=== PATIENT | female | born 1975 | race Caucasian/White ===

== ENCOUNTER 2021-05-30 04:16 | Inpatient (IN) | payer SELFPAY ==
[2021-05-30 05:01] LABS: #Eosinphils 0.1 thou/uL (0.0-0.7); #Lymphocytes 1.9 thou/uL (1.20-3.40); #Monocytes 0.4 thou/uL (0.11-0.59); #Neutrophils 6.3 thou/uL (1.40-6.50); %Basophils 0.4 % (0.0-1.0); %Eosinophils 1.7 % (0.0-10.0); %Lymphocytes 21.6 % (21.0-51.0); %Monocytes 4.2 % (0.0-10.0); %Neutrophils 72.1 % (42.0-75.0); Hemoglobin 12.4 g/dL (12.0-16.0); Mean Corpuscular HGB CONC 30.6 g/dL (32.0-36.0); Mean Corpuscular Hemoglobin 30.4 pg (27.0-31.0); Mean Corpuscular Volume 99.4 fL (78.0-98.0); Mean Platelet Volume 8.1 fL (7.4-10.4); Platelet Count 260 thou/uL (130-400); Red Blood Cell (RBC) Count 4.08 mill/uL (4.20-5.40); White Blood Cell (WBC) Count 8.7 thou/uL (4.8-10.8)
[2021-05-30 05:19] LABS: ALT (SGPT) 28 U/L (8-55); AST (SGOT) 26 U/L (5-34); Albumin 3.4 g/dL (3.5-5.0); Alkaline Phosphatase 99 U/L (40-110); Anion Gap 10 mmol/L (10-20); BUN (Urea Nitrogen) 14 mg/dL (7.0-18.7); Bilirubin, Total 0.3 mg/dL (0.2-1.2); Calc. Creatinine Clearance 0 mL/min (70-130); Calcium 8.9 mg/dL (7.8-10.44); Carbon Dioxide 36 mmol/L (22-29); Chloride 102 mmol/L (98-107); Globulin 3.1 g/dL (2.4-3.5); Glucose 263 mg/dL (70-105); Potassium 4.6 mmol/L (3.5-5.1); Protein, Total 6.5 g/dL (6.0-8.3); Sodium 143 mmol/L (136-145)
[2021-05-30 06:50] LABS: SARS-CoV-2 NAA Rapid Test Not Detected (NotDetected)
[2021-05-30] MEDS ORDERED: Acetaminophen 325 MG TAB PO PRN (09:40)
[2021-05-30] MEDS ORDERED: Dextrose 50% Abboject 50 ML SYRINGE SLOW IVP PRN (09:40)
[2021-05-30] MEDS ORDERED: Dextrose 5% in Water 1,000 ML IV PRN (09:40)
[2021-05-30] MEDS ORDERED: Furosemide 20 MG/2 ML VIAL SLOW IVP SCH (10:00)
[2021-05-30] MEDS ORDERED: Enoxaparin Sodium 40 MG/0.4 ML SYRINGE SC SCH (10:45)
[2021-05-30 11:03] VITALS: BMI 61.2
[2021-05-30] MEDS ORDERED: Iopamidol-370 76% 500 ML 1 ML ONE (12:27)
[2021-05-30] MEDS: HumaLOG 300 UNITS/3 ML VIAL SC PRN (12:40)
[2021-05-30] MEDS ORDERED: Albuterol Sulfate 1.25 MG/3 ML NEB NEB PRN (14:06)
[2021-05-30 16:40] LABS: Bacteria/HPF None Seen HPF (None Seen); Bilirubin Negative (Negative); Blood, Urine Negative (Negative); Clarity Clear (Clear); Glucose, Urine (Dipstick) Normal (Negative); Ketone, Urine Negative (Negative); Leukocyte Negative Leu/uL (Negative); Nitrite Negative (Negative); Protein, Urine (Dipstick) Negative (Neg-Trace); RBC/HPF 0-3 HPF (0-3); Specific Gravity, Urine 1.023 (1.002-1.036); Squamous Epithelial 0-3 HPF (0-3); Urobilinogen Normal mg/dL (Less than 2); WBC/HPF 0-3 HPF (0-3); pH, Urine 6.5 (5.0-9.0)
[2021-05-30] MEDS: Amlodipine 10 MG TAB PO SCH (20:40)
[2021-05-30] MEDS: Atorvastatin Calcium 40 MG TAB PO SCH (20:41)
[2021-05-30] MEDS: Lisinopril 10 MG TAB PO SCH (20:41)
[2021-05-30] MEDS: Lantus 1000 UNITS/10 ML VIAL SC SCH (20:42)
[2021-05-30] MEDS: Mometasone 200 MCG/Formoterol 5 MCG 120 PUFF INHALER INH SCH (22:15)
[2021-05-31] MEDS: Levothyroxine Sodium 88 MCG TAB PO SCH (05:38)
[2021-05-31 05:55] LABS: #Eosinphils 0.1 thou/uL (0.0-0.7); #Lymphocytes 1.7 thou/uL (1.20-3.40); #Monocytes 0.4 thou/uL (0.11-0.59); #Neutrophils 7.7 thou/uL (1.40-6.50); %Basophils 0.1 % (0.0-1.0); %Eosinophils 1.5 % (0.0-10.0); %Lymphocytes 16.9 % (21.0-51.0); %Monocytes 4.3 % (0.0-10.0); %Neutrophils 77.2 % (42.0-75.0); Hemoglobin 13.3 g/dL (12.0-16.0); Mean Corpuscular HGB CONC 31.4 g/dL (32.0-36.0); Mean Corpuscular Hemoglobin 31.2 pg (27.0-31.0); Mean Corpuscular Volume 99.4 fL (78.0-98.0); Mean Platelet Volume 7.8 fL (7.4-10.4); Platelet Count 273 thou/uL (130-400); RBC Distribution Width 13.8 % (11.5-14.5); Red Blood Cell (RBC) Count 4.24 mill/uL (4.20-5.40)
[2021-05-31 06:19] LABS: Anion Gap 11 mmol/L (10-20); BUN (Urea Nitrogen) 13 mg/dL (7.0-18.7); Calc. Creatinine Clearance 236 mL/min (70-130); Calcium 8.8 mg/dL (7.8-10.44); Carbon Dioxide 36 mmol/L (22-29); Chloride 100 mmol/L (98-107); Glucose 195 mg/dL (70-105); Potassium 4.7 mmol/L (3.5-5.1); Sodium 142 mmol/L (136-145)
[2021-05-31] MEDS: Enoxaparin Sodium 40 MG/0.4 ML SYRINGE SC SCH (08:55)
[2021-05-31] MEDS: Mometasone 200 MCG/Formoterol 5 MCG 120 PUFF INHALER INH SCH ×2 (10:27→18:31)
[2021-05-31] MEDS: HumaLOG 300 UNITS/3 ML VIAL SC PRN ×3 (11:45→20:10)
[2021-05-31] MEDS ORDERED: predniSONE 20 MG TAB PO SCH (14:45)
[2021-05-31] MEDS: Atorvastatin Calcium 40 MG TAB PO SCH (20:08)
[2021-05-31] MEDS: Amlodipine 10 MG TAB PO SCH (20:08)
[2021-05-31] MEDS: Lisinopril 10 MG TAB PO SCH (20:08)
[2021-05-31] MEDS: Lantus 1000 UNITS/10 ML VIAL SC SCH (20:09)
[2021-06-01] MEDS: Levothyroxine Sodium 88 MCG TAB PO SCH (05:22)
[2021-06-01 06:44] LABS: #Lymphocytes 1.6 thou/uL (1.20-3.40); #Monocytes 0.7 thou/uL (0.11-0.59); %Basophils 0.3 % (0.0-1.0); %Eosinophils 0.2 % (0.0-10.0); %Lymphocytes 15.6 % (21.0-51.0); %Monocytes 6.3 % (0.0-10.0); %Neutrophils 77.7 % (42.0-75.0); Mean Corpuscular Hemoglobin 30.7 pg (27.0-31.0); Mean Corpuscular Volume 99.1 fL (78.0-98.0); Mean Platelet Volume 7.7 fL (7.4-10.4); Platelet Count 271 thou/uL (130-400); RBC Distribution Width 13.7 % (11.5-14.5); Red Blood Cell (RBC) Count 4.22 mill/uL (4.20-5.40); White Blood Cell (WBC) Count 10.3 thou/uL (4.8-10.8)
[2021-06-01] MEDS: HumaLOG 300 UNITS/3 ML VIAL SC PRN ×4 (06:48→21:42)
[2021-06-01 07:04] LABS: BUN (Urea Nitrogen) 12 mg/dL (7.0-18.7); Calc. Creatinine Clearance 238 mL/min (70-130); Glucose 229 mg/dL (70-105)
[2021-06-01 07:13] LABS: Anion Gap 15 mmol/L (10-20); Carbon Dioxide 33 mmol/L (22-29); Chloride 101 mmol/L (98-107); Potassium 4.6 mmol/L (3.5-5.1); Sodium 144 mmol/L (136-145)
[2021-06-01] MEDS ORDERED: predniSONE 20 MG TAB PO SCH (08:00)
[2021-06-01] MEDS: Mometasone 200 MCG/Formoterol 5 MCG 120 PUFF INHALER INH SCH ×2 (10:34→19:49)
[2021-06-01] MEDS: Enoxaparin Sodium 40 MG/0.4 ML SYRINGE SC SCH (11:42)
[2021-06-01] MEDS: Atorvastatin Calcium 40 MG TAB PO SCH (21:37)
[2021-06-01] MEDS: Amlodipine 10 MG TAB PO SCH (21:37)
[2021-06-01] MEDS: Lisinopril 10 MG TAB PO SCH (21:38)
[2021-06-01] MEDS: Montelukast Sodium 10 mg Tablet PO SCH (21:38)
[2021-06-01] MEDS: Lantus 1000 UNITS/10 ML VIAL SC SCH (21:38)
[2021-06-02 05:36] LABS: #Basophils 0.1 thou/uL (0.0-0.2); #Eosinphils 0.1 thou/uL (0.0-0.7); #Lymphocytes 2.1 thou/uL (1.20-3.40); #Monocytes 0.7 thou/uL (0.11-0.59); %Basophils 0.7 % (0.0-1.0); %Eosinophils 0.6 % (0.0-10.0); %Monocytes 6.3 % (0.0-10.0); %Neutrophils 73.5 % (42.0-75.0); Hemoglobin 12.7 g/dL (12.0-16.0); Mean Corpuscular HGB CONC 32.6 g/dL (32.0-36.0); Mean Corpuscular Hemoglobin 32.3 pg (27.0-31.0); Mean Corpuscular Volume 98.9 fL (78.0-98.0); Mean Platelet Volume 7.9 fL (7.4-10.4); Platelet Count 273 thou/uL (130-400); RBC Distribution Width 13.5 % (11.5-14.5); Red Blood Cell (RBC) Count 3.92 mill/uL (4.20-5.40); White Blood Cell (WBC) Count 10.8 thou/uL (4.8-10.8)
[2021-06-02 05:58] LABS: Anion Gap 9 mmol/L (10-20); BUN (Urea Nitrogen) 13 mg/dL (7.0-18.7); Calc. Creatinine Clearance 238 mL/min (70-130); Calcium 8.8 mg/dL (7.8-10.44); Carbon Dioxide 36 mmol/L (22-29); Chloride 102 mmol/L (98-107); Glucose 202 mg/dL (70-105); Potassium 4.2 mmol/L (3.5-5.1); Sodium 143 mmol/L (136-145)
[2021-06-02] MEDS: Levothyroxine Sodium 88 MCG TAB PO SCH (06:57)
[2021-06-02] MEDS: glipiZIDE 10 MG TAB PO SCH (09:50)
[2021-06-02] MEDS: Furosemide 20 MG TAB PO SCH (09:51)
[2021-06-02] MEDS: Enoxaparin Sodium 40 MG/0.4 ML SYRINGE SC SCH (09:51)
[2021-06-02] MEDS: Mometasone 200 MCG/Formoterol 5 MCG 120 PUFF INHALER INH SCH (09:53)
[2021-06-02 12:50] LABS: Hemoglobin A1c 7.6 % (4.0-6.0)
[2021-06-02] MEDS: HumaLOG 300 UNITS/3 ML VIAL SC PRN (13:58)
[2021-06-02] MEDS: Amlodipine 10 MG TAB PO SCH (22:16)
[2021-06-02] MEDS: Atorvastatin Calcium 40 MG TAB PO SCH (22:17)
[2021-06-02] MEDS: Lisinopril 10 MG TAB PO SCH (22:17)
[2021-06-02] MEDS: Lantus 1000 UNITS/10 ML VIAL SC SCH (22:18)
[2021-06-02] MEDS: Montelukast Sodium 10 mg Tablet PO SCH (22:18)
[2021-06-03] MEDS: Levothyroxine Sodium 88 MCG TAB PO SCH (05:45)
[2021-06-03 06:01] LABS: #Eosinphils 0.2 thou/uL (0.0-0.7); #Lymphocytes 1.8 thou/uL (1.20-3.40); #Monocytes 0.6 thou/uL (0.11-0.59); #Neutrophils 7.3 thou/uL (1.40-6.50); %Basophils 0.4 % (0.0-1.0); %Eosinophils 2.2 % (0.0-10.0); %Lymphocytes 17.8 % (21.0-51.0); %Monocytes 6.2 % (0.0-10.0); %Neutrophils 73.3 % (42.0-75.0); Hemoglobin 13.2 g/dL (12.0-16.0); Mean Corpuscular HGB CONC 30.5 g/dL (32.0-36.0); Mean Corpuscular Volume 98.3 fL (78.0-98.0); Mean Platelet Volume 7.8 fL (7.4-10.4); Platelet Count 257 thou/uL (130-400); RBC Distribution Width 13.5 % (11.5-14.5); Red Blood Cell (RBC) Count 4.39 mill/uL (4.20-5.40)
[2021-06-03 06:21] LABS: Anion Gap 13 mmol/L (10-20); BUN (Urea Nitrogen) 15 mg/dL (7.0-18.7); Calc. Creatinine Clearance 248 mL/min (70-130); Carbon Dioxide 34 mmol/L (22-29); Chloride 99 mmol/L (98-107); Glucose 205 mg/dL (70-105); Potassium 4.7 mmol/L (3.5-5.1); Sodium 141 mmol/L (136-145)
[2021-06-03] MEDS: HumaLOG 300 UNITS/3 ML VIAL SC PRN ×2 (06:23→20:48)
[2021-06-03] MEDS: glipiZIDE 10 MG TAB PO SCH (09:27)
[2021-06-03] MEDS: Furosemide 20 MG TAB PO SCH (09:27)
[2021-06-03] MEDS: Enoxaparin Sodium 40 MG/0.4 ML SYRINGE SC SCH (09:27)
[2021-06-03] MEDS: Mometasone 200 MCG/Formoterol 5 MCG 120 PUFF INHALER INH SCH ×2 (10:12→10:13)
[2021-06-03] MEDS: Atorvastatin Calcium 40 MG TAB PO SCH (20:45)
[2021-06-03] MEDS: Amlodipine 10 MG TAB PO SCH (20:45)
[2021-06-03] MEDS: Montelukast Sodium 10 mg Tablet PO SCH (20:45)
[2021-06-03] MEDS: Lisinopril 10 MG TAB PO SCH (20:45)
[2021-06-03] MEDS: Lantus 1000 UNITS/10 ML VIAL SC SCH (20:48)
[2021-06-03] MEDS ORDERED: Sodium Chloride 0.65% Nasal 44 ML BOT EA NARE PRN (22:15)
[2021-06-04 05:38] LABS: #Basophils 0.1 thou/uL (0.0-0.2); #Eosinphils 0.3 thou/uL (0.0-0.7); #Monocytes 0.7 thou/uL (0.11-0.59); #Neutrophils 6.3 thou/uL (1.40-6.50); %Basophils 0.6 % (0.0-1.0); %Lymphocytes 21.5 % (21.0-51.0); %Monocytes 7.5 % (0.0-10.0); %Neutrophils 67.4 % (42.0-75.0); Hemoglobin 13.1 g/dL (12.0-16.0); Mean Corpuscular Hemoglobin 30.3 pg (27.0-31.0); Mean Corpuscular Volume 97.7 fL (78.0-98.0); Mean Platelet Volume 7.8 fL (7.4-10.4); Platelet Count 270 thou/uL (130-400); RBC Distribution Width 13.5 % (11.5-14.5); Red Blood Cell (RBC) Count 4.32 mill/uL (4.20-5.40); White Blood Cell (WBC) Count 9.4 thou/uL (4.8-10.8)
[2021-06-04] MEDS: Levothyroxine Sodium 88 MCG TAB PO SCH (05:39)
[2021-06-04] MEDS: HumaLOG 300 UNITS/3 ML VIAL SC PRN ×2 (05:40→20:24)
[2021-06-04 06:01] LABS: BUN (Urea Nitrogen) 12 mg/dL (7.0-18.7); Calc. Creatinine Clearance 233 mL/min (70-130); Calcium 9.3 mg/dL (7.8-10.44); Glucose 226 mg/dL (70-105)
[2021-06-04 06:10] LABS: Anion Gap 11 mmol/L (10-20); Carbon Dioxide 38 mmol/L (22-29); Chloride 97 mmol/L (98-107); Potassium 4.3 mmol/L (3.5-5.1); Sodium 142 mmol/L (136-145)
[2021-06-04] MEDS: Furosemide 20 MG TAB PO SCH (08:14)
[2021-06-04] MEDS: glipiZIDE 10 MG TAB PO SCH (08:14)
[2021-06-04] MEDS: Enoxaparin Sodium 40 MG/0.4 ML SYRINGE SC SCH (08:14)
[2021-06-04 13:27] LABS: #Basophils 0.1 thou/uL (0.0-0.2); #Eosinphils 0.2 thou/uL (0.0-0.7); #Lymphocytes 1.8 thou/uL (1.20-3.40); #Monocytes 0.5 thou/uL (0.11-0.59); #Neutrophils 8.1 thou/uL (1.40-6.50); %Basophils 0.5 % (0.0-1.0); %Eosinophils 1.9 % (0.0-10.0); %Lymphocytes 16.6 % (21.0-51.0); %Monocytes 4.9 % (0.0-10.0); %Neutrophils 76.2 % (42.0-75.0); Hemoglobin 13.5 g/dL (12.0-16.0); Mean Corpuscular HGB CONC 30.4 g/dL (32.0-36.0); Mean Corpuscular Hemoglobin 29.8 pg (27.0-31.0); Mean Corpuscular Volume 98.2 fL (78.0-98.0); Mean Platelet Volume 7.6 fL (7.4-10.4); Platelet Count 312 thou/uL (130-400); RBC Distribution Width 13.5 % (11.5-14.5); Red Blood Cell (RBC) Count 4.52 mill/uL (4.20-5.40); White Blood Cell (WBC) Count 10.6 thou/uL (4.8-10.8)
[2021-06-04] MEDS: Mometasone 200 MCG/Formoterol 5 MCG 120 PUFF INHALER INH SCH ×3 (15:04→18:30)
[2021-06-04] MEDS: cefTRIAXone\\ROCEPHIN 1 GM in Sodium Chloride 0.9% 100 ML IVPB SCH (17:31)
[2021-06-04 19:02] LABS: Bacteria/HPF None Seen HPF (None Seen); Bilirubin Negative (Negative); Blood, Urine Negative (Negative); Clarity Clear (Clear); Glucose, Urine (Dipstick) Normal (Negative); Ketone, Urine Negative (Negative); Leukocyte Negative Leu/uL (Negative); Nitrite Negative (Negative); Protein, Urine (Dipstick) 20 mg/dL (Neg-Trace); RBC/HPF 0-3 HPF (0-3); Specific Gravity, Urine 1.014 (1.002-1.036); Urobilinogen Normal mg/dL (Less than 2); WBC/HPF 0-3 HPF (0-3); pH, Urine 8.5 (5.0-9.0)
[2021-06-04] MEDS: Amlodipine 10 MG TAB PO SCH (20:22)
[2021-06-04] MEDS: Montelukast Sodium 10 mg Tablet PO SCH (20:22)
[2021-06-04] MEDS: Atorvastatin Calcium 40 MG TAB PO SCH (20:23)
[2021-06-04] MEDS: Lantus 1000 UNITS/10 ML VIAL SC SCH (20:23)
[2021-06-04] MEDS: Lisinopril 10 MG TAB PO SCH (20:23)
[2021-06-05] MEDS: HumaLOG 300 UNITS/3 ML VIAL SC PRN ×4 (06:26→21:23)
[2021-06-05] MEDS: Levothyroxine Sodium 88 MCG TAB PO SCH (06:26)
[2021-06-05] MEDS: Mometasone 200 MCG/Formoterol 5 MCG 120 PUFF INHALER INH SCH ×2 (07:12→18:27)
[2021-06-05] MEDS: glipiZIDE 10 MG TAB PO SCH (09:48)
[2021-06-05] MEDS: Furosemide 20 MG TAB PO SCH (09:48)
[2021-06-05] MEDS: Enoxaparin Sodium 40 MG/0.4 ML SYRINGE SC SCH (09:48)
[2021-06-05] MEDS: cefTRIAXone\\ROCEPHIN 1 GM in Sodium Chloride 0.9% 100 ML IVPB SCH (16:40)
[2021-06-05] MEDS: Amlodipine 10 MG TAB PO SCH (21:22)
[2021-06-05] MEDS: Lisinopril 10 MG TAB PO SCH (21:22)
[2021-06-05] MEDS: Montelukast Sodium 10 mg Tablet PO SCH (21:22)
[2021-06-05] MEDS: Atorvastatin Calcium 40 MG TAB PO SCH (21:22)
[2021-06-05] MEDS: Lantus 1000 UNITS/10 ML VIAL SC SCH (21:24)
[2021-06-06] MEDS: Levothyroxine Sodium 88 MCG TAB PO SCH (07:28)
[2021-06-06] MEDS: glipiZIDE 10 MG TAB PO SCH (08:05)
[2021-06-06] MEDS: HumaLOG 300 UNITS/3 ML VIAL SC PRN ×2 (08:05→11:56)
[2021-06-06] MEDS: Furosemide 20 MG TAB PO SCH (08:06)
[2021-06-06] MEDS: Enoxaparin Sodium 40 MG/0.4 ML SYRINGE SC SCH (08:06)
[2021-06-06 09:36] LABS: #Eosinphils 0.2 thou/uL (0.0-0.7); #Lymphocytes 1.8 thou/uL (1.20-3.40); #Monocytes 0.5 thou/uL (0.11-0.59); #Neutrophils 7.2 thou/uL (1.40-6.50); %Basophils 0.4 % (0.0-1.0); %Eosinophils 1.9 % (0.0-10.0); %Lymphocytes 18.2 % (21.0-51.0); %Monocytes 5.3 % (0.0-10.0); %Neutrophils 74.2 % (42.0-75.0); Hemoglobin 13.1 g/dL (12.0-16.0); Mean Corpuscular HGB CONC 31.5 g/dL (32.0-36.0); Mean Corpuscular Hemoglobin 30.5 pg (27.0-31.0); Mean Corpuscular Volume 96.9 fL (78.0-98.0); Mean Platelet Volume 7.8 fL (7.4-10.4); Platelet Count 266 thou/uL (130-400); RBC Distribution Width 13.5 % (11.5-14.5); Red Blood Cell (RBC) Count 4.29 mill/uL (4.20-5.40); White Blood Cell (WBC) Count 9.7 thou/uL (4.8-10.8)
[2021-06-06 09:55] LABS: Anion Gap 10 mmol/L (10-20); BUN (Urea Nitrogen) 12 mg/dL (7.0-18.7); Calc. Creatinine Clearance 236 mL/min (70-130); Carbon Dioxide 37 mmol/L (22-29); Chloride 97 mmol/L (98-107); Glucose 287 mg/dL (70-105); Potassium 4.4 mmol/L (3.5-5.1); Sodium 140 mmol/L (136-145)
[2021-06-06 13:25] VITALS: BP 128/75; TEMP 98.7
== END 2021-06-06 13:15 | disposition home or self-care (01) | DRG 205 ==
LOC: ERS 04:16 → SURG B 06:20
PROVIDERS: ADMIT Internal Medicine; ATTEND Internal Medicine
DX: E66.2 Morbid (severe) obesity with alveolar hypoventilation (principal); J96.21 Acute and chronic respiratory failure with hypoxia; Z68.44 Body mass index [BMI] 60.0-69.9, adult; J45.901 Unspecified asthma with (acute) exacerbation; Z20.822 Contact with and (suspected) exposure to COVID-19; E11.9 Type 2 diabetes mellitus without complications; E03.9 Hypothyroidism, unspecified; I10 Essential (primary) hypertension; F12.10 Cannabis abuse, uncomplicated; E78.5 Hyperlipidemia, unspecified; R60.0 Localized edema; Z88.1 Allergy status to other antibiotic agents; Z90.49 Acquired absence of other specified parts of digestive tract; Z87.891 Personal history of nicotine dependence; Z79.899 Other long term (current) drug therapy; Z79.51 Long term (current) use of inhaled steroids; Z79.4 Long term (current) use of insulin; Z91.19 Patient's noncompliance with other medical treatment and regimen
CPT/HCPCS: 36415; 36416; 71045; 71275; 80048; 80053; 81001; 82728; 83036; 83880; 84484; 85025; 85379; 86140; 87040; 87086; 87633; 93005; 93970; 94640; J0696; J1650; J1815; J1940; J3490; J7512; J7620; Q9967; U0002

== ENCOUNTER 2022-07-22 17:53 | Emergency (ER) | payer SELFPAY ==
[2022-07-22] MEDS ORDERED: Lidocaine 1% PF 5 ML VIAL ONE (19:04)
[2022-07-22] MEDS ORDERED: Bacitracin 1 PK ONE (19:44)
== END 2022-07-22 20:01 | disposition home or self-care (01) ==
LOC: ERS 17:53
DX: L03.011 Cellulitis of right finger (principal)
CPT/HCPCS: 10060

== ENCOUNTER 2022-11-19 19:25 | Emergency (ER) | payer SELFPAY | END 2022-11-19 23:35 | disposition home or self-care (01) | LOC: ERS 19:25 | DX: K04.7 Periapical abscess without sinus (principal); K05.10 Chronic gingivitis, plaque induced; E11.9 Type 2 diabetes mellitus without complications; E78.5 Hyperlipidemia, unspecified; I10 Essential (primary) hypertension; E66.9 Obesity, unspecified; J44.9 Chronic obstructive pulmonary disease, unspecified | CPT/HCPCS: 99282 ==